=== PATIENT | male | born 1940 | race Asian ===

== ENCOUNTER 2019-01-30 09:02 | Inpatient (IN) | payer OTHER ==
[~2019-01-30] VITALS: Ht 185.4 cm; Wt 85.9 kg
[2019-01-30 09:12] VITALS: Ht 185.4 cm; Wt 85.9 kg
[2019-01-30 09:55] LABS: BASOPHIL % 0.9 % (0-2); PLATELET COUNT 157 x10^3mcL (130-400); RED CELL DISTRIBUTION WIDTH 13.7 % (11.5-14.5)
[2019-01-30 10:05] LABS: CALCIUM 8.9 mg/dL (8.5-10.1); CARBON DIOXIDE 28.9 mmol/L (21-32); CHLORIDE SERUM 105 mmol/L (98-107); CREATININE SERUM 1.3 mg/dL (0.7-1.3); GLUCOSE SERUM 109 mg/dL (74-106); SODIUM SERUM 141 mmol/L (136-145)
[2019-01-30 10:16] LABS: ALBUMIN 4.1 g/dL (3.4-5.0); ALKALINE PHOSPHATASE 95 U/L (46-116); ALT/SGPT 25 U/L (16-63); AMYLASE 111 U/L (25-115); AST/SGOT 22 U/L (15-37); BILIRUBIN TOTAL 0.6 mg/dL (0.20-1.00); CHOLESTEROL 161 mg/dL (<200); HDL CHOLESTEROL 51 mg/dL (40-60); LIPASE 66 IU/L (73-393); T4(THYROXINE) 9.1 ug/dL (4.7-13.3); TOTAL PROTEIN, SERUM 8.5 g/dL (6.4-8.2)
[2019-01-30 10:53] LABS: microscopic required? NO
[2019-01-30 11:05] LABS: UA SPECIFIC GRAVITY <=1.005 (1.005-1.035); urine erythrocyte NEGATIVE (NEGATIVE)
[2019-01-30 11:09] LABS: AMPHETAMINE QUAL UR NONE DETECTED (See below)
[2019-01-30] MEDS ORDERED: LOSARTAN POTASS50 M1 PO (12:16)
[2019-01-30] MEDS ORDERED: PANTOPRAZOLE SO40 M1 PO (12:16)
[2019-01-30] MEDS ORDERED: LIPITOR20 MG PO (12:16)
[2019-01-30] MEDS ORDERED: AMLODIPINE BESY10 M2 PO (12:17)
[2019-01-30] MEDS ORDERED: GOOD SENSE ASPI81 M3 PO (12:17)
[2019-01-30 14:40] VITALS: BP 136/53
[2019-01-30 21:28] VITALS: BP 129/68
[2019-01-31 05:16] VITALS: BP 118/54
[2019-01-31 06:16] LABS: CALCIUM 8.6 mg/dL (8.5-10.1); CARBON DIOXIDE 28.5 mmol/L (21-32); CHLORIDE SERUM 108 mmol/L (98-107); CREATININE SERUM 1.4 mg/dL (0.7-1.3); GLUCOSE SERUM 89 mg/dL (74-106); MAGNESIUM 2.4 mg/dL (1.8-2.4); POTASSIUM SERUM 4.1 mmol/L (3.5-5.1); SODIUM SERUM 143 mmol/L (136-145)
[2019-01-31 06:55] LABS: BASOPHIL % 0.5 % (0-2); PLATELET COUNT 140 x10^3mcL (130-400); RED CELL DISTRIBUTION WIDTH 13.4 % (11.5-14.5)
[2019-01-31 10:04] VITALS: BP 118/54
== END 2019-01-31 10:41 | disposition home or self-care (01) | DRG 241 ==
LOC: ED 09:02 → DU 13:47
PROVIDERS: Emergency Medicine; ADMIT Internal Medicine
DX: K29.70 Gastritis, unspecified, without bleeding (principal); N18.3 Chronic kidney disease, stage 3 (moderate); E78.5 Hyperlipidemia, unspecified; I12.9 Hypertensive chronic kidney disease with stage 1 through stage 4 chronic kidney disease, or unspecified chronic kidney disease; I25.10 Atherosclerotic heart disease of native coronary artery without angina pectoris; Z98.61 Coronary angioplasty status; K21.9 Gastro-esophageal reflux disease without esophagitis; Z82.49 Family history of ischemic heart disease and other diseases of the circulatory system; Z87.891 Personal history of nicotine dependence; R07.89 Other chest pain
CPT/HCPCS: 83880; J3490; Q0092